=== PATIENT | male | born 1985 | race Caucasian/White ===

== ENCOUNTER 2024-12-07 12:26 | Emergency (ER) | payer OTHER, SELFPAY ==
[2024-12-07 12:34] VITALS: BP 161/85; PULSE 80; RESP 20; TEMP 36.4; O2SAT 96
--- NOTE | 2024-12-07 12:43 | ED.NAVMDI ---
HPI - Nausea/Vomiting/Diarrhea General Chief complaint: Nausea/Vomiting/Diarrhea Stated complaint: Diarrhea/Stomach Pain Time Seen by Provider: 12/07/24 12:44 Source: patient, RN notes reviewed and old records reviewed Mode of arrival: ambulatory Limitations: no limitations History of Present Illness HPI Narrative: 39-year-old male who presents to [facility] with complaints of starting on Saturday night of having upper epigastric discomfort and during the night he had felt like he had a fever. He reports that on Saturday he threw up X1 and then started having some diarrhea. He reports 15 loose stools yesterday and took Pepto Bismol chewable tablets and noted his stool being black last evening. Patient reports that he quit taking the Pepto Bismol was concerned for blood in stool. He reports that he did eat breakfast this morning and he has had one loose stool today and continues to have some soreness of upper abdomen. He reports no further fever or chills, appetite is decreased but is drinking a lot of water. Patient reports that he has not had known exposure to any known sick contact. MD elicited complaint: nausea, vomiting, diarrhea and other (upper epigastric soreness) Onset (ago): day(s) (2-3 days) Description of diarrhea: other (loose black after taking Pepto Bismol) Associated nausea: Yes Associated abdominal pain: Yes Location of pain: epigastric Treatment prior to arrival: fluids (increased oral fluids, Pepto Bismol) and other Related Data Allergies Allergy/AdvReac Type Severity Reaction Status Date / Time No Known Allergies Allergy Verified 12/07/24 12:39 Review of Systems Review of Systems: CONSTITUTIONAL: Episode of fever, chills, or sweats Saturday during night one episode of vomiting. EYES: Denies visual changes, redness, or discharge. ENT: Denies rhinorrhea, congestion, sore throat, or otalgia. CARDIOVASCULAR: Denies chest pain, palpitations, or edema. RESPIRATORY: Denies cough or dyspnea. GASTROINTESTINAL: reports epigastric abdominal soreness, nausea, vomiting, or diarrhea. GENITOURINARY: Denies dysuria or hematuria. SKIN: Denies rash or itching. MUSCULOSKELETAL: Denies back pain, joint pain, or myalgia. NEUROLOGIC: Denies headache, numbness, or weakness. PSYCHIATRIC: Denies anxiety or depression. All systems reviewed & are unremarkable except as noted in HPI and below PMFSH Surgical History Surgical History (Updated 12/07/24 @ 14:21 by Mary Middleton NP) History of right knee surgery H/O left knee surgery Social History Social History (Updated 12/07/24 @ 14:21 by Mary Middleton NP) Smoking status: Never smoker Alcohol intake: current Alcohol use details: social Substance use type: does not use Living arrangements: with family Gender identity (if verbalized by the patient): Male Comments At time of signature, agree with nursing past medical, surgical, social and family history. There is no relevant family history pertinent to the presenting complaint Exam Narrative: GENERAL: Well-appearing, well-nourished, and in no acute distress. HEAD: Normocephalic, atraumatic. EYES: PERRLA and EOMI. ENT: Nares clear, no rhinorrhea or epistaxis. Mucous membranes moist. NECK: Supple. no lymphadenopathy CHEST: Clear to auscultation. No respiratory distress. SAO2 96% on room air HEART: Regular rate and rhythm. No murmur heard. Normal peripheral pulses. ABDOMEN: Soft, reports some soreness to epigastric area, no right upper abdomen pain, no McBurney point tenderness, nondistended, normal active bowel sounds. reports no vomiting since Saturday and diarrhea has decreased to one time so far today. EXTREMITIES: Normal range of motion. No edema. SKIN: Warm, dry, no rash. NEURO: No focal deficits. Alert and oriented x3. Course Course Emergency Course: Patient is aware of diagnosis, understands and agrees to treatment plan.? Anticipatory guidance given.? Patient agrees to follow-up as directed and is aware of reasons to seek care at the emergency department. Portions of this record may have been created with voice recognition software Level of Care: Express Care Visit Vital Signs Vital signs: Vital Signs Temperature 36.4 C 12/07/24 12:34 Pulse Rate 80 12/07/24 12:34 Respiratory Rate 12/07/24 12:34 Blood Pressure 161/85 H 12/07/24 12:34 Pulse Oximetry 96 12/07/24 12:34 Oxygen Delivery Room Air 12/07/24 12:34 Temperature 36.4 C 12/07/24 12:34 Pulse Rate 80 12/07/24 12:34 Respiratory Rate 20 12/07/24 12:34 Blood Pressure 161/85 H 12/07/24 12:34 Pulse Oximetry 96 12/07/24 12:34 Oxygen Delivery Room Air 12/07/24 12:34 Reviewed MDM - Nausea/Vomiting/Diarrhea Differential Diagnosis Differential diagnosis: Likely traveler's diarrhea, gastroenteritis and other (viral infection) Medical Records Attestation: I reviewed the patient's medical records. Lab Data Attestation: I reviewed the patient's lab results. Lab results narrative: Influenza A negative, Influenza B negative Labs: Lab Results 12/07/24 Range/Units 13:00 POC Influenza A Ag Negative (Negative) POC Influenza B Ag Negative (Negative) reviewed Critical Care Time Critical Care Time Critical Care Time: No Discharge Plan Discharge Clinical Impression: Gastroenteritis Patient Disposition: Home Condition: Stable Instructions: Gastroenteritis (ED) Additional Instructions: Clear liquids for the next 8-10 hours, then advance to a bland diet as tolerated A bland diet can consist of--BRAT diet which is bananas, rice, applesauce, and toast Avoid fried, greasy, fatty, fried foods Avoid caffeine, nicotine, and alcohol Return to your regular diet in the next 3-4 days Medication as directed for nausea and vomiting Tylenol for pain Sometimes ibuprofen/Aleve can cause increased stomach upset Kvre-kqr-xrgxvyu Imodium if develop diarrhea Follow-up with her PCP if continued problems or uncontrolled pain If your symptoms persist, change or worsen significantly before you can contact your personal physician then please, without delay, go to the emergency department for further evaluation. Follow-up with PCP in 7-10 days or sooner if needed Follow up with PCP soon in regards to your blood pressure which is elevated above threshold for referral. Blood pressure above 120/80 may indicate pre-hypertension. 161/85 Patient Language: Palestinian Prescriptions: New ondansetron 4 mg tablet,disintegrating 4 mg PO Q6H PRN (Reason: nausea and vomiting) Qty: 14 0RF Follow-up/Referrals: UNKNOWN,DOCTOR [Primary Care Provider] - Time of Disposition: 13:33 Quality [place] Coma Scale Eyes: Open Verbal: Oriented and Alert Motor: Follows Commands [place] Coma Total Score: 15
[2024-12-07 13:16] LABS: EDINFLUASCREEN Negative (Negative); EDINFLUBSCREEN Negative (Negative)
--- OUTSIDE RECORDS SUMMARY | 2024-12-07 13:51 | XMS_ITS | Clinical Summary ---
Author Organization [employer] Address [address] 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
--- OUTSIDE RECORDS SUMMARY | 2024-12-07 13:51 | XMS_ITS | Encounter Summary ---
Author Organization [employer] Address 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
== END 2024-12-07 13:37 | disposition home or self-care (01) ==
PROVIDERS: Emergency Provider Registered Nurse
DX: K52.9 Noninfective gastroenteritis and colitis, unspecified (principal)
CPT/HCPCS: 87804; 99213; G0463

== ENCOUNTER 2025-01-27 10:01 | Emergency (ER) | payer OTHER, SELFPAY ==
[2025-01-27 10:05] VITALS: BP 136/94; PULSE 96; RESP 16; TEMP 37.2; O2SAT 96
--- NOTE | 2025-01-27 10:41 | ED_ITS ---
HPI - URI/Sore Throat General Chief Complaint: Upper Respiratory Infection Stated Complaint: Sore Throat/Cough Time Seen by Provider: 01/27/25 10:41 Source: patient Mode of arrival: ambulatory Limitations: no limitations History of Present Illness HPI Narrative: 39-year-old male presents with complaint of nasal congestion, sore throat, cough since yesterday. Reports coughing greenish brown sputum. No chest pain or shortness breath. Afebrile. Not taking any cqkx-rhs-udxrgmi medications to treat symptoms. All systems reviewed and negative except as noted above. Related Data Allergies Allergy/AdvReac Type Severity Reaction Status Date / Time No Known Allergies Allergy Verified 01/27/25 10:25 Review of Systems Review of Systems: CONSTITUTIONAL: Denies fever, chills, or sweats. reports fatigue. EYES: Denies visual changes, redness, or discharge. ENT: Reports rhinorrhea, congestion, sore throat. Denies otalgia. CARDIOVASCULAR: Denies chest pain, palpitations, or edema. RESPIRATORY: Reports cough. Denies dyspnea. GASTROINTESTINAL: Denies abdominal pain, nausea, vomiting, or diarrhea. GENITOURINARY: Denies dysuria or hematuria. SKIN: Denies rash or itching. MUSCULOSKELETAL: Denies back pain, joint pain, or myalgia. NEUROLOGIC: Denies headache, numbness, or weakness. PSYCHIATRIC: Denies anxiety or depression. All other systems reviewed are negative, except as documented in HPI. [facility] Surgical History Surgical History (Updated 12/07/24 @ 14:21 by Mary Middleton NP) History of right knee surgery H/O left knee surgery Social History Social History (Updated 12/07/24 @ 14:21 by Mary Middleton NP) Smoking status: Never smoker Alcohol intake: current Alcohol use details: social Substance use type: does not use Living arrangements: with family Gender identity (if verbalized by the patient): Male Comments At time of signature, agree with nursing past medical, surgical, social and family history. There is no relevant family history pertinent to the presenting complaint. Exam Narrative: GENERAL: This is a well-nourished, well-developed patient, in no apparent distress. HEAD: normocephalic, atraumatic. EYES: PERRL. Sclera clear/white. Vision is grossly intact. EARS: External ears normal, auditory canals clear and without drainage, TMs normal without perforation. Hearing grossly intact. NOSE: External nose normal with clear nasal drainage with mild erythema to nares THROAT: Mucous membranes moist, mild erythema with postnasal drainage NECK: Neck supple, non-tender without lymphadenopathy, masses or thyromegaly. CARDIOVASCULAR: Regular rate and rhythm without murmurs, gallops, or rubs. RESPIRATORY: Clear to auscultation. Breath sounds equal bilaterally. No wheezes, rales, or rhonchi. SKIN: warm, Dry, intact with no suspicious lesions or rash, good texture and turgor. NEURO: awake, alert, and oriented to person, place and time. There were no obvious focal neurologic abnormalities. EXTREMITIES: No joint tenderness, effusion, or edema noted. Course Course Level of Care: Express Care Visit Vital Signs Vital signs: Vital Signs Temperature 37.2 C 01/27/25 10:05 Pulse Rate 96 01/27/25 10:05 Respiratory Rate 16 01/27/25 10:05 Blood Pressure 136/94 H 01/27/25 10:05 Pulse Oximetry 96 01/27/25 10:05 Oxygen Delivery Room Air 01/27/25 10:05 Temperature 37.2 C 01/27/25 10:05 Pulse Rate 96 01/27/25 10:05 Respiratory Rate 16 01/27/25 10:05 Blood Pressure 136/94 H 01/27/25 10:05 Pulse Oximetry 96 01/27/25 10:05 Oxygen Delivery Room Air 01/27/25 10:05 reviewed MDM - URI/Sore Throat MDM Narrative Medical decision making narrative: negative strep test. Lungs clear to auscultation. Patient well-appearing. Recommend [id number]-[id number] medications to treat viral symptoms. Differential Diagnosis Differential diagnosis: Likely upper respiratory infection, sinusitis, viral infection and pharyngitis Lab Data Labs: Lab Results 01/27/25 Range/Units 10:44 POC Grp A Strep Screen Negative (Negative) Discharge Plan Discharge Clinical Impression: Viral upper respiratory tract infection with cough Patient Disposition: Home Condition: Stable Instructions: Acute Cough (ED) Additional Instructions: your strep test was negative today. Your symptoms are viral and may last 10-14 days. Take medications as prescribed. Take Tylenol or ibuprofen every 6-8 hours as needed for pain. Place cool mist humidifier in bedroom where you sleep. Drink at least 64 oz of water a day. See your doctor if symptoms are not improving. Patient Language: Slovenian Prescriptions: New benzonatate 200 mg capsule 200 mg PO TID PRN (Reason: cough) Qty: 20 0RF methylprednisolone [Medrol (Jared)] 4 mg tablets,dose pack See Rx Instructions PO .COMPLEX Qty: 21 0RF Rx Instructions: orally per package directions Follow-up/Referrals: PHYSICIAN,SALESPERSON SHOES [Primary Care Provider] - Stand Alone Forms: Work/School Release IP Time of Disposition: 10:49
[2025-01-27 10:45] LABS: EDSTREPNEGPOS1 Negative (Negative)
== END 2025-01-27 10:50 | disposition home or self-care (01) ==
PROVIDERS: Emergency Provider Nurse Practitioner Family
DX: J06.9 Acute upper respiratory infection, unspecified (principal); R05.9 Cough, unspecified
CPT/HCPCS: 87081; 87880; 99213; G0463